=== PATIENT | female | born 1980 ===

== ENCOUNTER 2025-03-13 13:17 | Emergency (ER) | payer OTHER, SELFPAY ==
[2025-03-13 13:22] VITALS: BP 122/68; PULSE 60; O2SAT 97
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
[2025-03-13 13:24] VITALS: BP 131/66; PULSE 58; RESP 16; TEMP 36.3; O2SAT 98; BMI 31.0
== END 2025-03-13 18:07 | disposition left against medical advice (07) ==
PROVIDERS: Emergency Provider Emergency Medicine
DX: S09.90XA Unspecified injury of head, initial encounter (principal); Y04.8XXA Assault by other bodily force, initial encounter; Y93.9 Activity, unspecified; Y92.9 Unspecified place or not applicable; Y99.8 Other external cause status
CPT/HCPCS: 99281